=== PATIENT | female | born 2000 | race Caucasian/White ===

== ENCOUNTER 2023-01-08 17:33 | Emergency (ER) | payer MEDICAID, SELFPAY ==
[2023-01-08 17:34] VITALS: BP 125/97; PULSE 69; RESP 16; TEMP 36.9; O2SAT 100; BMI 25.9
--- NOTE | 2023-01-08 18:05 | EX.ED.VIS.EY ---
HPI <ANGELLA Rees - Last Filed: 01/08/23 18:19> History of Present Illness Chief Complaint: Eye Problem Narrative Narrative: Patient had left eye pain when she woke up and bought [id number] eyedrops. After using these and went going to the movies she came out and the eye was puffy and more painful. She denies vision changes. She does not wear glasses or contacts. PFSH <ANGELLA Rees Last Filed: 01/08/23 18:19> PFSH Medical History no medical history Home Medications amoxicillin 875 mg-potassium clavulanate 125 mg tablet 1 tab PO BID 7 days #14 tabs 01/08/23 [Rx Last Taken Unknown] ofloxacin 0.3 % eye drops (Ocuflox) See Rx Instructions EACH EYE .COMPLEX #5 mL 01/08/23 [Rx Last Taken Unknown] Surgical History no surgical history Social History Smoking Status: Never smoker ROS <ANGELLA Rees Last Filed: 01/08/23 18:19> ROS ED ROS Narrative Constitutional: Negative for fever, chills, malaise. Eyes: Negative for visual change. Neuro: Negative for headache. EXAM <ANGELLA Rees Last Filed: 01/08/23 18:19> Physical Exam Narrative Exam Narrative: CONST: Patient sitting in no acute distress. EYES: Left eye scleral injection, upper eyelid puffy and erythematous. Yellow crusting on her eyelashes. PERRLA, EOMI without pain. No hyphema or hypopyon. No foreign body. Right eye appears normal. NECK: Normal inspection. RESP: No respiratory distress, CTAB. CVS: Regular rate and rhythm, no murmur, no gallop. SKIN: Color normal, no rash, warm, dry, intact. EXTREMITIES: Normal appearance, no pedal edema. NEURO: Oriented x4. PSYCH: Normal affect. Const Vital Signs: 01/08/23 17:34 Temperature 98.5 F Temperature Source Temporal Pulse Rate 69 Respiratory Rate 16 Blood Pressure 125/97 H Blood Pressure Mean 106 Pulse Ox 100 Oxygen Delivery Method Room Air MDM <ANGELLA Rees Last Filed: 01/08/23 18:19> MDM MDM Narrative Medical decision making narrative: Patient has left eye irritation that started this morning. The eye is red and the upper eyelids also puffy and erythematous. There are some yellow crusting. Pupils are equal and reactive and vision intact. She has no pain with extraocular movements they have no concern for orbital cellulitis. She denies potential for foreign body or abrasion. I suspect she has conjunctivitis/preseptal cellulitis and I prescribed ofloxacin and Augmentin. I recommended she follow-up with an elementary teacher next week or return to ER if symptoms worsen and she was discharged in stable condition. Differential: Blepharitis, conjunctivitis, preseptal or orbital cellulitis Test considered: No exophthalmos, no pain with extraocular motion, no signs of orbital cellulitis and no indication for CT orbits <Dr. Mario Schmidt MD - Last Filed: 01/08/23 19:10> [facility] MDM Narrative Medical decision making narrative: Patient has left eye irritation that started this morning. The eye is red and the upper eyelids also puffy and erythematous. There are some yellow crusting. Pupils are equal and reactive and vision intact. She has no pain with extraocular movements they have no concern for orbital cellulitis. She denies potential for foreign body or abrasion. I suspect she has conjunctivitis/preseptal cellulitis and I prescribed ofloxacin and Augmentin. I recommended she follow-up with an elementary teacher next week or return to ER if symptoms worsen and she was discharged in stable condition. Differential: Blepharitis, conjunctivitis, preseptal or orbital cellulitis Test considered: No exophthalmos, no pain with extraocular motion, no signs of orbital cellulitis and no indication for CT orbits Roxana: Patient was seen by me. I agree with the above extenders note, note was done by both me and the PA as I may have edited some of the above. Discharge Plan Triage Chief Complaint: Eye Problem ED Midlevel Provider: Shahida Serrano ED Provider: Mario Schmidt Dx/Rx/DC Orders Clinical Impression: Acute conjunctivitis, left eye, Preseptal cellulitis of left eye Instructions: ED Conjunctivitis, Bacterial Prescriptions: New ofloxacin [Ocuflox] 0.3 % drops See Rx Instructions .ROUTE .COMPLEX Qty: 5 0RF Rx Instructions: put 1-2 drps into affected eye every 2-4 h x 2 days, then 1-2 drps 4 times/day days 3-7 amoxicillin-pot clavulanate 875-125 mg tablet 1 tab PO BID 7 Days Qty: 14 0RF Primary Care Provider: Barrett Parsons Referrals: Barrett Parsons MD [Primary Care Provider] - Chris Dixon MD [Med Staff - Active Staff] - Activity Restrictions/Additional Instructions: Please use the antibiotic pills and eyedrops and cleanse your eye with warm washcloth throughout the day. Follow-up with the eye doctor Disposition Disposition: Home, Self Care Discharge Date/Time: 01/08/23 18:34
[2023-01-08] MEDS: Tetracaine 0.5% Ophthalmic Bottle 3 DRP LEFT EYE (18:09)
[2023-01-08] MEDS: Amox/Clavulanate 875 MG Tablet PO (18:13)
[2023-01-08 18:17] VITALS: BP 114/64; PULSE 78; RESP 16; TEMP 36.6; O2SAT 99
== END 2023-01-08 18:34 | disposition home or self-care (01) ==
LOC: ED 18:29
PROVIDERS: Emergency Provider Emergency Medicine; PCP Pediatrics; Referring Provider Emergency Medicine; Visit Provider Emergency Medicine
DX: H00.034 Abscess of left upper eyelid (principal); H10.32 Unspecified acute conjunctivitis, left eye
CPT/HCPCS: 99283